=== PATIENT | female | born 1970 | race Caucasian/White ===

== ENCOUNTER 2020-11-17 01:21 | Emergency (ER) | payer OTHER ==
[~2020-11-17] VITALS: Ht 162.6 cm; Wt 74.8 kg
== END 2020-11-17 04:50 | disposition home or self-care (01) ==
LOC: ED 01:21
DX: T74.21XA Adult sexual abuse, confirmed, initial encounter (principal); Z85.830 Personal history of malignant neoplasm of bone; F17.200 Nicotine dependence, unspecified, uncomplicated; Z88.0 Allergy status to penicillin
CPT/HCPCS: 81001; 85025; 99284

== ENCOUNTER 2021-02-10 00:15 | Emergency (ER) | payer OTHER ==
[~2021-02-10] VITALS: Ht 162.6 cm; Wt 74.8 kg
== END 2021-02-10 03:41 | disposition home or self-care (01) ==
LOC: ED 00:15
DX: R29.818 Other symptoms and signs involving the nervous system (principal); M54.5 Low back pain; W01.190A Fall on same level from slipping, tripping and stumbling with subsequent striking against furniture, initial encounter; Y93.89 Activity, other specified; Y92.89 Other specified places as the place of occurrence of the external cause; Y99.8 Other external cause status
CPT/HCPCS: 51702; 70450; 71260; 72125; 74177; 80053; 82150; 83690; 85025; 99284-25; Q9967

== ENCOUNTER 2021-08-13 23:52 | Emergency (ER) | payer OTHER ==
[~2021-08-13] VITALS: Ht 162.6 cm; Wt 68.0 kg
== END 2021-08-14 02:13 | disposition home or self-care (01) ==
LOC: ED 23:52
DX: R55 Syncope and collapse (principal); S09.90XA Unspecified injury of head, initial encounter; T14.8XXA Other injury of unspecified body region, initial encounter; Z85.830 Personal history of malignant neoplasm of bone; K50.90 Crohn's disease, unspecified, without complications; Z88.0 Allergy status to penicillin; W22.8XXA Striking against or struck by other objects, initial encounter; W19.XXXA Unspecified fall, initial encounter
CPT/HCPCS: 70450; 72125; 72128; 72131; 99284-25

== ENCOUNTER 2021-08-16 19:46 | Emergency (ER) | payer OTHER ==
[~2021-08-16] VITALS: Ht 162.6 cm; Wt 76.0 kg
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
[2021-08-16] MEDS ORDERED: PROTONIX40 MG PO (23:24)
[2021-08-16] MEDS ORDERED: MACROBID 100 M100 MG PO (23:24)
[2021-08-16] MEDS ORDERED: ONDANSETRON ODT8 MG PO (23:24)
== END 2021-08-16 23:49 | disposition home or self-care (01) ==
LOC: ED 19:46
DX: T18.9XXA Foreign body of alimentary tract, part unspecified, initial encounter (principal); N39.0 Urinary tract infection, site not specified; R10.32 Left lower quadrant pain; Z85.830 Personal history of malignant neoplasm of bone; Z88.0 Allergy status to penicillin
CPT/HCPCS: 36415; 74177; 80053; 81001; 83690; 85025; 96375; 99284-25; A9270; J1170; J2405; J7030

== ENCOUNTER 2021-08-19 13:27 | Emergency (ER) | payer OTHER ==
[~2021-08-19] VITALS: Ht 162.6 cm; Wt 76.3 kg
[~2021-08-19 13:27] MED LIST: MACROBID 100 M100 MG PO; ONDANSETRON ODT8 MG PO; PROTONIX40 MG PO
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
[2021-08-19] MEDS ORDERED: ACID-PEP20 MG PO (18:23)
[2021-08-19] MEDS ORDERED: MAALOX ADVANCE355 ML PO (18:23)
== END 2021-08-19 19:28 | disposition home or self-care (01) ==
LOC: ED 13:27
DX: R10.13 Epigastric pain (principal); K50.90 Crohn's disease, unspecified, without complications; Z88.0 Allergy status to penicillin; Z79.899 Other long term (current) drug therapy; Z85.830 Personal history of malignant neoplasm of bone
CPT/HCPCS: 36415; 71045; 74177; 80053; 83690; 85025; 96375; 99284-25; A9270; J2270; J2405